=== PATIENT | female | born 1950 | race Caucasian/White ===

== ENCOUNTER → 2018-02-07 | Outpatient (CLI) | payer OTHER, MEDICARE ==
[~2018-02-07] MED LIST: ALENDRONATE SOD70 MG PO; ASPIR 8181 MG PO; CALCIUM 500 +1 EAC5 PO; CELEXA10 MG PO; FISH OIL 1,001000 M2 PO; FORTICAL1 SPRAY NASAL; HYDROCODONE-AP1 EAC6 PO; KEFLEX500 M1 PO; NEXIUM40 MG PO; OXYBUTYNIN 5 MG5 M2 PO; PHENERGAN 25 MG25 M1 PO; PRAVACHOL20 MG PO; UNICOMPLEX M TA1 TA1 PO; VALACYCLOVIR HCL1 GM MC; VITAMIN D3400 UNIT PO
== END ==
LOC: M.RAD 13:24
DX: M81.0 Age-related osteoporosis without current pathological fracture (principal); M85.89 Other specified disorders of bone density and structure, multiple sites; Z78.0 Asymptomatic menopausal state

== ENCOUNTER 2018-04-27 20:20 | Emergency (ER) | payer OTHER, MEDICARE ==
[~2018-04-27] VITALS: Ht 157.5 cm; Wt 67.1 kg
[2018-04-27] MEDS ORDERED: COZAAR 25 MG TA25 M1 PO (20:29)
[2018-04-27] MEDS ORDERED: PROTONIX 20 MG20 M1 PO (20:30)
[2018-04-27 20:39] LABS: ABSOLUTE BASOPHILS 0.1 thou/uL (0.0-0.2); ABSOLUTE EOSINOPHILS 0.3 thou/uL (0.0-0.7); ABSOLUTE MONOCYTES 1.1 thou/uL (0.0-1.2); BASOPHILS 0.9 %; EOSINOPHILS 3.2 %; HEMATOCRIT 42.5 % (37.0-47.0); HEMOGLOBIN 14.6 gm/dL (12.0-15.0); LYMPHOCYTES 28.8 %; MCH 31.4 pg (26.0-34.0); MCHC 34.4 g/dL (28.0-37.0); MCV 91.3 fL (80.0-100.0); MONOCYTES 10.1 %; MPV 7.4 fl. (7.2-11.1); NUCLEATED RBCS 0 /100WBC; PLATELET COUNT* 278 thou/uL (150-400); RBC 4.66 mil/uL (4.20-5.00); RDW-CV 13.2 % (10.5-14.5); WBC 10.5 thou/uL (4.0-11.0)
[2018-04-27 20:49] LABS: ANION GAP 3 mmol/L (7-16); BUN 26 mg/dL (7-18); CALCIUM 8.9 mg/dL (8.5-10.1); CHLORIDE 100 mmol/L (98-107); CO2 35 mmol/L (21-32); CREATININE 1.2 mg/dL (0.6-1.3); GLUCOSE 95 mg/dL (70-99); POTASSIUM 3.8 mmol/L (3.5-5.1); SODIUM 138 mmol/L (136-145)
[2018-04-27 20:52] LABS: PROTIME 10.1 Seconds (9.20-11.50)
[2018-04-27 20:57] LABS: ALBUMIN 3.4 g/dL (3.4-5.0); ALKALINE PHOSPHATASE 72 U/L (46-116); LIPASE 229 U/L (73-393); NT-PRO BRAIN NAT PEPTIDE 88 pg/mL (<300); SGOT 11 U/L (15-37); SGPT 30 U/L (30-65); TOTAL BILIRUBIN 0.3 mg/dL (<0.1-1.0); TROPONIN-I LEVEL <0.06 ng/mL (<0.06)
[2018-04-27 21:44] LABS: URINE BILIRUBIN NEGATIVE (Negative); URINE BLOOD TRACE (Negative); URINE CLARITY CLEAR; URINE COLOR YELLOW; URINE GLUCOSE-RANDOM NEGATIVE (Negative); URINE KETONES NEGATIVE (Negative); URINE LEUKOCYTES-REFLEX NEGATIVE (Negative); URINE NITRITE-REFLEX NEGATIVE (Negative); URINE PROTEIN NEGATIVE (Negative); URINE UROBILINOGEN 0.2 E.U./dl (0.2-1.0)
[2018-04-27] MEDS ORDERED: CARAFATE 1 GM TA1 GM PO (22:35)
[2018-04-27 22:45] VITALS: BP 140/78
--- NOTE | 2018-04-28 10:24 | EKG ---
[place] [address] ELECTROCARDIOGRAM REPORT Name: KRISTINE COLMENARES Room: [facility]#: [id number] Admission: 04/27/18 Attend Phys: Discharge: 04/27/18 Date of : 48 Report #: [id number] THIS REPORT FOR: //name// [facility] ED Test Date: 2018-04-27 Test Time: 20:26:08 Pat Name: KRISTINE CUEVASS Department: Room: Gender: F Industrial Roofer Helper: NISREEN : 1950 Requested By: Cassi Gardner Order Number: [id number] MD: Elpidio Berry Measurements Intervals Panacea Rate: 92 P: 59 CO: 172 QRS: -27 QRSD: 87 T: 80 QT: 377 QTc: 467 Interpretive Statements Sinus rhythm Probable left atrial enlargement Borderline left axis deviation Abnormal R-wave progression, late transition No previous ECG available for comparison Electronically Signed On 04-28-2018 10:23:54 [employer] by Elpidio Berry [email or web address] <ELECTRONICALLY SIGNED> By: Elpidio Berry MD, [facility] 04/28/18 1023 25 25 Elpidio Berry MD, FAC /EPI
== END 2018-04-27 22:45 | disposition home or self-care (01) ==
LOC: M.ERS 20:20
PROVIDERS: Emergency Medicine
DX: R07.89 Other chest pain (principal); I10 Essential (primary) hypertension

== ENCOUNTER → 2018-05-16 | Outpatient (CLI) | payer OTHER, MEDICARE ==
[~2018-05-16] MED LIST changes: +CARAFATE 1 GM TA1 GM PO; +COZAAR 25 MG TA25 M1 PO; +PROTONIX 20 MG20 M1 PO
--- NOTE | 2018-05-18 12:33 | TST ---
[place] [address] TREADMILL STRESS TEST Name: KRISTINE COLMENARES Room: [facility]#: [id number] Admission: 05/16/18 Attend Phys: Sergio Mosher, Discharge: Date of : 48 Date of Service: 05/16/18 1130 Report #: [id number] THIS REPORT FOR: //name// CC: Sergio Ambrocio DO DATE OF SERVICE: 05/16/2018 INDICATIONS: Exercise stress test was requested in this patient with a history of coronary artery disease. RESULTS: The patient was exercised on a Randolph protocol from a pretest heart rate of 80, blood pressure 163/93. The patient was able to exercise for 6 minutes and 56 seconds achieving a peak heart rate of 164, which is greater than 90% of maximum predicted heart rate for the patient's age. The peak blood pressure was 214/103. In recovery, the patient had heart rate of 88, blood pressure 160/90. The patient denied chest pain with exercise, which was terminated when target heart rate was achieved. The patient's resting ECG showed a normal sinus rhythm and there was no significant ST or T-wave change noted at baseline. With exercise, there was no arrhythmia noted. The patient did develop J-point depression with exercise, but there was no significant ST-segment depression at 80 milliseconds after the J-point. There was a ventricular couplet noted during recovery. IMPRESSION: 1. Adequate exercise tolerance. 2. No chest pain with exercise. 3. No ischemic ST segment changes noted with exercise. 4. Negative exercise stress test for myocardial ischemia. 5. This test is felt to represent a low-risk study for predicting future cardiac events. <ELECTRONICALLY SIGNED> By: Chris Lugo MD, FACC 05/18/18 1233 1130 1803 Chris Lugo MD, FACC /nt
== END ==
LOC: M.CRD 10:19
DX: R07.9 Chest pain, unspecified (principal); Z86.79 Personal history of other diseases of the circulatory system

== ENCOUNTER → 2019-03-13 | Outpatient (CLI) | payer OTHER, MEDICARE | LOC: M.CT 08:57 | DX: K57.30 Diverticulosis of large intestine without perforation or abscess without bleeding (principal); K76.89 Other specified diseases of liver ==

== ENCOUNTER → 2020-02-07 | Outpatient (CLI) | payer MEDICARE | LOC: M.MRI 14:21 | PROVIDERS: ATTEND Family Medicine | DX: M47.812 Spondylosis without myelopathy or radiculopathy, cervical region (principal); M54.2 Cervicalgia; M48.02 Spinal stenosis, cervical region ==

== ENCOUNTER → 2020-04-16 | Outpatient (CLI) | payer MEDICARE | LOC: M.RAD 13:13 | PROVIDERS: ATTEND Family Medicine | DX: M85.88 Other specified disorders of bone density and structure, other site (principal) ==